=== PATIENT | male | born 2000 | race Caucasian/White ===

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

== ENCOUNTER 2019-10-09 17:51 | Emergency (ER) | payer OTHER ==
[2019-10-09] MEDS ORDERED: EPINEPHrine 1 MG/ML AMP ONE (17:57)
[2019-10-09] MEDS ORDERED: diphenhydrAMINE 50 MG/ML VIAL ONE (18:04)
[2019-10-09] MEDS ORDERED: Famotidine In NaCl 20 mg/50 ml Premix Bag ONE (18:04)
[2019-10-09] MEDS ORDERED: methylPREDNISolone Sod Succ/PF 125 MG/2 ML VIAL ONE (18:04)
[2019-10-09] MEDS ORDERED: Ketorolac Tromethamine 30 MG/ML VIAL ONE (18:30)
== END 2019-10-09 21:20 | disposition home or self-care (01) ==
LOC: BURERS 17:51
DX: T63.461A Toxic effect of venom of wasps, accidental (unintentional), initial encounter (principal); G40.909 Epilepsy, unspecified, not intractable, without status epilepticus; F43.10 Post-traumatic stress disorder, unspecified; F41.9 Anxiety disorder, unspecified; F90.9 Attention-deficit hyperactivity disorder, unspecified type; F17.210 Nicotine dependence, cigarettes, uncomplicated; Z79.899 Other long term (current) drug therapy
CPT/HCPCS: 96372; 96374; 96375; J0171; J1200; J1885; J2930

== ENCOUNTER 2019-12-03 00:25 | Emergency (ER) | payer OTHER ==
[2019-12-03] MEDS ORDERED: Ibuprofen 800 MG TAB ONE (00:41)
== END 2019-12-03 00:40 | disposition home or self-care (01) ==
LOC: BURERS 00:25
DX: S20.211A Contusion of right front wall of thorax, initial encounter (principal); F43.10 Post-traumatic stress disorder, unspecified; F41.9 Anxiety disorder, unspecified; F90.9 Attention-deficit hyperactivity disorder, unspecified type; W22.8XXA Striking against or struck by other objects, initial encounter
CPT/HCPCS: 99283

== ENCOUNTER 2020-03-11 18:40 | Emergency (ER) | payer OTHER ==
[2020-03-11] MEDS ORDERED: Ketorolac Tromethamine 30 MG/ML VIAL ONE (19:36)
== END 2020-03-11 19:32 | disposition home or self-care (01) ==
LOC: BURERS 18:40
DX: L03.011 Cellulitis of right finger (principal); G40.909 Epilepsy, unspecified, not intractable, without status epilepticus; F43.10 Post-traumatic stress disorder, unspecified; F41.9 Anxiety disorder, unspecified; F90.9 Attention-deficit hyperactivity disorder, unspecified type; F17.290 Nicotine dependence, other tobacco product, uncomplicated
CPT/HCPCS: 96372; 99283; J1885

== ENCOUNTER 2020-04-09 20:45 | Emergency (ER) | payer OTHER ==
[2020-04-09 21:23] LABS: #Basophils 0.1 thou/uL (0.0-0.2); #Eosinphils 0.2 thou/uL (0.0-0.7); #Lymphocytes 2.2 thou/uL (1.20-3.40); #Monocytes 0.6 thou/uL (0.11-0.59); #Neutrophils 4.8 thou/uL (1.40-6.50); %Basophils 0.9 % (0.0-1.0); %Eosinophils 2.6 % (0.0-10.0); %Lymphocytes 27.9 % (28.0-48.0); %Monocytes 7.4 % (0.0-4.0); %Neutrophils 61.2 % (31.0-61.0); Hemoglobin 16.9 g/dL (14.0-18.0); Mean Corpuscular HGB CONC 32.3 g/dL (32.0-36.0); Mean Corpuscular Hemoglobin 29.6 pg (25.0-35.0); Mean Corpuscular Volume 91.5 fL (78.0-98.0); Mean Platelet Volume 9.3 fL (7.4-10.4); Platelet Count 231 thou/uL (130-400); RBC Distribution Width 11.6 % (11.5-14.5); White Blood Cell (WBC) Count 7.9 thou/uL (4.8-10.8)
[2020-04-09 21:33] LABS: ALT (SGPT) 103 U/L (8-55); AST (SGOT) 30 U/L (5-34); Albumin 4.3 g/dL (3.5-5.0); Alkaline Phosphatase 63 U/L (50-130); Anion Gap 16 mmol/L (10-20); BUN (Urea Nitrogen) 15 mg/dL (8.9-20.6); Bilirubin, Total 0.4 mg/dL (0.2-1.2); Calc. Creatinine Clearance 0 mL/min (70-130); Calcium 9.3 mg/dL (7.8-10.44); Carbon Dioxide 24 mmol/L (22-29); Chloride 104 mmol/L (98-107); Estimated GFR-MDRD Greater than 90; Globulin 2.7 g/dL (2.4-3.5); Glucose 84 mg/dL (70-105); Sodium 140 mmol/L (136-145)
--- NOTE | 2020-04-10 07:31 | CT ---
CT OF THE BRAIN WITHOUT CONTRAST: Date: 04-09-2020 FINDINGS: A Noncontrast CT shows normal sized ventricles with no shift. No intracranial bleeding, mass, or sign of stroke was found. There is good white distention. Some mucosal thickening in suggested in at least an axillary sinus. Comparison with the 01-17-2020 study shows no adverse interval change. IMPRESSION: No acute intracranial findings. Preliminary report called to Dr. Santiago at [id number] on 04-09-2020. POS: HOME
== END 2020-04-09 21:55 | disposition home or self-care (01) ==
LOC: BURERS 20:45
DX: R56.9 Unspecified convulsions (principal); F43.10 Post-traumatic stress disorder, unspecified; F41.9 Anxiety disorder, unspecified; F90.9 Attention-deficit hyperactivity disorder, unspecified type; Z79.899 Other long term (current) drug therapy
CPT/HCPCS: 36415; 70450; 80053; 85025; 94760

== ENCOUNTER 2020-10-02 23:00 | Emergency (ER) | payer OTHER ==
[2020-10-02] MEDS ORDERED: Clindamycin 150 MG CAP ONE (23:43)
== END 2020-10-02 23:50 | disposition home or self-care (01) ==
LOC: BURERS 23:03
DX: L03.114 Cellulitis of left upper limb (principal); Z79.899 Other long term (current) drug therapy; G40.909 Epilepsy, unspecified, not intractable, without status epilepticus
CPT/HCPCS: 99283

== ENCOUNTER 2020-12-22 16:05 | Emergency (ER) | payer OTHER | END 2020-12-22 17:10 | disposition home or self-care (01) | LOC: BURERS 16:05 | DX: R59.0 Localized enlarged lymph nodes (principal); G40.909 Epilepsy, unspecified, not intractable, without status epilepticus | CPT/HCPCS: 99283 ==

== ENCOUNTER 2021-02-10 13:51 | Emergency (ER) | payer OTHER | END 2021-02-10 19:20 | disposition home or self-care (01) | LOC: BURERS 13:51 | DX: J02.9 Acute pharyngitis, unspecified (principal); G40.909 Epilepsy, unspecified, not intractable, without status epilepticus | CPT/HCPCS: 99282 ==